=== PATIENT | male | born 1975 | race Caucasian/White ===

== ENCOUNTER 2019-08-05 20:10 | Emergency (ER) | payer SELFPAY ==
[2019-08-05 20:12] VITALS: BP 142/71; PULSE 82; RESP 18; TEMP 36.6; O2SAT 97; BMI 26.5
--- NOTE | 2019-08-05 20:23 | RAD_ITS ---
STUDY: X-RAY - LUMBAR SPINE REASON FOR EXAM: Male, 44 years old. Fall pain in left hip. TECHNIQUE: 3 view(s) of the lumbar spine were obtained. COMPARISON: None FINDINGS: Normal lumbar lordosis. There is no substantial scoliosis. There is a normal alignment of the vertebrae. There are screws traversing the right sacroiliac joint and sacrum. There are degenerative changes of the visualized thoracic spine. There is multilevel endplate spondylosis of the lumbar vertebrae. There is multi-level degenerative disc disease with mild multi-level disc space narrowing. The soft tissue structures are unremarkable. RAD/Lumbar Spine 2 or 3 Views IMPRESSION: Degenerative changes. Electronically Signed: Maria Esther Andres MD at 21:09 EDT Tel , Service support ,
--- NOTE | 2019-08-05 20:24 | RAD_ITS ---
STUDY: X-RAY - PELVIS AND LEFT HIP REASON FOR EXAM: Male, 44 years old. Fall TECHNIQUE: 3 views of the pelvis and hip. COMPARISON: None. FINDINGS: There is a non-specific bowel gas pattern. Normal visualized soft tissue structures. There are 2 screws traversing the right sacroiliac joint and the sacrum. There is a screw within the right acetabulum noted as well. There are deformities of the right superior and inferior and left superior pubic rami suggestive of old fractures. No acute fracture nor dislocation is visualized. RAD/HIP, UNI W/ Pelvis 2-3 Views IMPRESSION: No acute fracture identified. Electronically Signed: Maria Esther Andres MD at 21:21 EDT Tel , Service support ,
[2019-08-05] MEDS: Acetaminophen 500 MG Tablet 1000 MG PO (21:09)
[2019-08-05] MEDS: Naproxen 500 MG Tablet PO (21:09)
--- NOTE | 2019-08-05 21:44 | ED.VISSUMM ---
- ER Visit Summary Date of Service: 08/05/19 Chief Complaint: Fall History of Present Illness: The patient is a 44 M with no primary care physician. He reports that he was walking down the steps and slipped and fell while carrying his kids. States that his left hip popped and he has left hip and low back pain that is 6 out of 10 currently and 10 out of 10 at worst. Describes it as sharp pain. Is worsened by movement and relieved by rest. Denies any paresthesias or weakness. He denies any blow to the head or loss of consciousness. He is not on anticoagulants. Patient reports that 4 to 5 years ago he was hit by a piece of equipment while building a barn and suffered a fracture to his right hip and pelvis. He is concerned that the hardware has broken. Physical Examination: Vitals: Stable. Afebrile. Neck: No vertebral tenderness. Full ROM without difficulty. Cleared by NEXUS criteria. Back: Mild diffuse tenderness outpatient over lumbar spine. No point tenderness. General: A&O x 3. NAD. Cardiovascular exam: Regular rate and rhythm, no murmur, rub or gallop. Respiratory exam: Chest nontender. No crepitus. Clear to auscultation bilaterally. No wheezes or stridor. Abdominal exam: Soft, nontender, nondistended, normal bowel sounds. No pain in RUQ or LUQ specifically. No peritoneal signs. Extremity: Mild tenderness palpation over left greater trochanter. No pain with internal or external rotation of the hip. He is neuro vas intact distal to this. Test Results: Clinical Impression(s) from Imaging Studies Lumbar Spine X-Ray 08/05/19 20:23 IMPRESSION: Degenerative changes. Electronically Signed: Maria Esther Andres MD at 21:09 EDT Tel , Service support , Hip/Pelvis X-Ray 08/05/19 20:24 IMPRESSION: No acute fracture identified. Electronically Signed: Maria Esther Andres MD at 21:21 EDT Tel , Service support , Emergency Department Course and Treatment: Patient was treated with Tylenol and ibuprofen. He is resting comfortably. He is been able to ambulate in the emergency department. Treatment Plan: Patient will be discharged with symptomatic care. Ice the area. Use Tylenol and/or ibuprofen as needed for pain. Patient be discharged instructed to follow-up Dr. Antonio Solorio in 1 week if not improving. Return to the emergency department for any worsening symptoms. Disposition: To home in improved and stable condition. Impression: 1. Fall. 2. Lumbar strain. 3. Left hip contusion. This note was generated with [employer] dictation software. It may contain incorrect words, spelling, and punctuation that were not noted in review of the chart prior to signing ED Disposition - Plan for ED Patient: Disposition: Home or Assisted Living Instructions: ED CONTUSION Hip Referrals: Antonio Solorio MD [STAFF PHYSICIAN] - 1 Week if not improving
[2019-08-05 22:03] VITALS: BP 129/80; PULSE 76; RESP 18; O2SAT 97
== END 2019-08-05 22:04 | disposition home or self-care (01) ==
LOC: ED 20:28
PROVIDERS: Emergency Provider Emergency Medicine
DX: S39.012A Strain of muscle, fascia and tendon of lower back, initial encounter (principal); S70.02XA Contusion of left hip, initial encounter; W10.9XXA Fall (on) (from) unspecified stairs and steps, initial encounter; Y93.01 Activity, walking, marching and hiking
CPT/HCPCS: 72100; 73502; 99285

== ENCOUNTER 2022-04-27 13:09 | Emergency (ER) | payer MEDICAID, SELFPAY ==
[2022-04-27 13:10] VITALS: BP 167/117; PULSE 83; RESP 16; TEMP 36.6; O2SAT 98; BMI 28.7
[2022-04-27 14:50] VITALS: BP 180/92; PULSE 95; RESP 20; O2SAT 99
--- NOTE | 2022-04-27 15:03 | EX.ED.DYSGE1 ---
HPI History of Present Illness Chief Complaint: Edema Informant: patient Onset/Context/Timing Onset: Weeks (1) Context: Gradual Onset Timing: Continuous Quality: Swelling Location: Bilateral lower legs Worsened by: Nothing Relieved by: Nothing Narrative Narrative: Patient presents with lateral lower extremity swelling neurology that has been getting progressively worse over the last week. Patient states it is gradually getting worse. Patient states it has been constant. Patient states is mainly in the lower extremities below his knees. Patient denies any pain. Patient states nothing makes it better and nothing makes it worse. Patient states he has been trying to elevate his legs with no improvement. Patient denies any chest pain. Patient denies any shortness of breath. Patient denies any fevers or chills. PFSH PFS Home Medications NK 08/05/19 [History Last Taken Unknown] Allergy/AdvReac Type Severity Reaction Status Date / Time No Known Allergies Allergy Verified 04/27/22 13:12 Surgical History (Updated 04/27/22 @ 15:[address] Manolo Higgins DO) S/P ORIF (open reduction internal fixation) fracture Social History Smoking Status: Never smoker ROS ROS ED Constitutional Constitutional ED: Denies chills or fever(s) Eyes Eyes: Denies blurry vision or change in vision ENT ENT ED: Denies rhinorrhea or sore throat Cardiovascular Cardiovascular: Denies chest pain or palpitations Respiratory/Chest Respiratory/Chest: Denies cough or dyspnea Gastrointestinal Gastrointestinal: Denies nausea or vomiting Genitourinary Genitourinary ED: Denies dysuria or hematuria Musculoskeletal Musculoskeletal: Reports neck pain; Denies back pain Integumentary Denies abscess or rash Neurologic Neurologic: Reports headache(s); Denies weakness Allergic/Immunologic Allergic/Immunologic ED: Denies mouth swelling or urticaria EXAM Physical Exam Const Vital Signs: 04/27/22 13:10 04/27/22 14:50 04/27/22 14:50 Temperature 98 F Temperature Source Temporal Pulse Rate 83 95 Respiratory Rate 16 20 H Respiratory Effort Normal Non-Labored Blood Pressure 167/117 H 180/92 H Blood Pressure Mean 133 121 Pulse Ox 98 99 Oxygen Delivery Method Room Air Room Air Positive well nourished and well developed General Appearance ED: well developed HEENT Reports moist mucous membranes Neck supple and no JVD Resp normal respiratory effort and clear to auscultation bilaterally Cardio regular rate, regular rhythm and no murmurs GI normal to inspection, nondistended, normoactive bowel sounds and non-tender Palpation: soft Extremity normal to inspection General Extremety ED: Yes edema and tenderness General Extremity: edema bilateral lower extremity Details: mild Neuro oriented x3, CN's II-XII intact bilaterally and no sensory deficits noted Sensorium / Orientation: alert Motor Exam: strength 5/5 throughout Psych mental status grossly normal Skin no rashes or lesions noted MDM MDM MDM Narrative Medical decision making narrative: Differential diagnosis includes congestive heart failure, renal failure, bilateral DVTs, electrolyte abnormality, cardiac ischemia, and hypertensive urgency. Chest x-ray will be obtained to assess for congestive heart failure dementia and pneumonia. CBC will be obtained to assess for leukocytosis and anemia. Basic metabolic profile will be obtained to assess for renal function and electrolyte abnormality. BNP will be obtained to assess for congestive heart failure. High-sensitivity troponin will be obtained to assess for cardiac ischemia. Bilateral venous duplex ultrasounds will be obtained to assess for DVT. Lab Data Attestation: I reviewed the patient's lab results. Lab results narrative: CBC was reviewed and was within normal limits. Basic metabolic profile was reviewed and was within normal limits. High-sensitivity troponin was reviewed and was normal. B natruretic peptide was reviewed and was only slightly elevated at 102.6. Labs: Laboratory Results - last 24 hr 04/27/22 04/27/22 04/27/22 15:23 15:23 15:23 WBC 9.2 RBC 5.09 Hgb 15.5 Hct 46.3 MCV 91.0 MCH 30.5 MCHC 33.5 RDW Std Deviation 40.7 RDW Coeff of Sakina 12.2 Plt Count 216 MPV 9.1 Immature Gran % (Auto) 0.100 Neut % (Auto) 55.6 Lymph % (Auto) 18.8 L [place] % (Auto) 7.3 Eos % (Auto) 17.2 H Baso % (Auto) 1.0 Absolute Neuts (auto) 5.1 Absolute Lymphs (auto) 1.72 Nucleated RBC % 0 Sodium 138 Potassium 4.1 Chloride 107 Carbon Dioxide 24.0 Anion Gap 7 BUN 16 Creatinine 1.14 Estim Creat Clear Calc 83.60 Est GFR (MDRD) Af Amer 89 Est GFR (MDRD) Non-Af 73 BUN/Creatinine Ratio 14.0 Glucose 83 Calcium 8.9 Troponin I High Sens 9 B-Natriuretic Peptide 102.6 H Radiography Chest X-Ray - ED: 2 View, Read by ED Physician, Read by Radiologist and No Acute Disease Diagnostic Testing: Clinical Impression(s) from Imaging Studies Chest X-Ray 04/27/22 15:50 IMPRESSION: No acute cardiopulmonary pathology Electronically Signed: Frankie Barrera MD at 16:05 EDT , PA and lateral chest x-ray was obtained. There are 2 views. On my independent interpretation, lung norton are clear. There is normal cardiac silhouette. Bony thorax is normal. There is no acute process noted. Radiologist also interpreted the x-ray and agrees. Venous duplex of the lower extremities was obtained. There is no evidence of DVT. Treatment and Re-Evaluation :: Patient was advised of his findings. Patient is feeling better on reevaluation. Patient was instructed to keep his legs elevated. Patient was instructed to follow-up with his primary care physician in 5 to 7 days for further evaluation. Patient understood and was agreeable with the plan. All questions were answered. Discharge Plan Triage Chief Complaint: Edema ED Provider: Manolo Higgins Dx/Rx/DC Orders Clinical Impression: Peripheral edema, Elevated blood pressure reading Instructions: ED Peripheral Edema, Bilateral Prescriptions: No Action NK Primary Care Provider: Care Physician,No Primary Referrals: Oralia Dash MD [Med Staff - Professional Services Manager] - 5-7 Days Care Physician,No Primary [Primary Care Provider] - Disposition Disposition: Home, Self Care
--- NOTE | 2022-04-27 15:09 | VDLE_ITS ---
Reason For Study: Swelling RIGHT LEFT GSV is normal. GSV is normal. CFV is compressible, spontaneous, phasic, CFV is compressible, spontaneous, phasic, competent and demonstrates normal competent, and demonstrates normal augmentation. augmentation. FV is compressible, spontaneous, phasic, FV is compressible, spontaneous, phasic, competent and demonstrates normal competent and demonstrates normal augmentation. augmentation. POP V is compressible, spontaneous, phasic, POP V is compressible, spontaneous, phasic, competent and demonstrates normal competent and demonstrates normal augmentation. augmentation. T/P Trunk is compressible. T/P Trunk is compressible. PTV is compressible. PTV is compressible. RT PerV is compressible. LT PerV is compressible. Procedure This is a venous duplex using B-mode, color flow and spectral Doppler. Exam performed portable in ED. A preliminary report was called and/or faxed to Dr. Higgins. VL/Venous Duplex US - Matt Extrem Interpretation Summary Deep veins of the bilateral lower extremities are patent and compressible segme ntally. There is no evidence of bilateral lower extremity deep vein thrombosis. The bilateral great saphenous veins appear patent and compressible segmentally. Ordering Physician: Manolo Higgins Performed By: Nelda Nguyễn RVT
[2022-04-27 15:35] LABS: Absolute Lymphocyte Count 1.72 X10^3/uL (0.83-4.51); Absolute Neutrophil Count 5.1 X10^3/uL (2.0-7.7); Basophil# 0.09 X10^3/uL; Eosinophil# 1.58 X10^3/uL; Eosinophils% 17.2 % (0-5); Hematocrit 46.3 % (40-54); Hemoglobin 15.5 g/dL (13.0-16.5); Lymphocyte # 1.72 X10^3/ul (0.83-4.51); Lymphocyte % 18.8 % (19-41); Mean Corp Hgb Conc 33.5 g/dL (32-36); Mean Corpuscular Hgb 30.5 pg (27.0-32.0); Mean Platelet Vol. 9.1 fl (6.2-12.0); Monocyte# 0.67 X10^3/uL; Monocyte% 7.3 % (0-10); NRBC Flagged by Analyzer 0 % (0-5); Neutrophil % 55.6 % (47-70); Platelet Count 216 K/mm3 (150-450); RBC Distribution Width CV 12.2 % (11.6-14.6); RBC Distribution Width SD 40.7 fl (35.1-43.9); Red Blood Count 5.09 M/mm3 (4.6-6.2); White Blood Count 9.2 K/mm3 (4.4-11.0)
--- NOTE | 2022-04-27 15:50 | RAD_ITS ---
STUDY: X-RAY CHEST REASON FOR EXAM: Male, 46 years old. Dyspnea TECHNIQUE: PA and lateral COMPARISON: None. FINDINGS: The lungs are clear and expanded. There is no demonstrated pleural abnormality. Normal size heart. Normal mediastinum and desean. Normal visualized pulmonary arteries. Normal visualized aortic arch and descending thoracic aorta. Dorsal spine demonstrates degenerative changes.. Normal visualized ribs, clavicles, and shoulders. There is no demonstrated abnormality of the visualized soft tissue structures of the upper abdomen. RAD/Chest PA and Lateral IMPRESSION: No acute cardiopulmonary pathology Electronically Signed: Frankie Barrera MD at 16:05 EDT ,
[2022-04-27 15:54] LABS: Anion Gap 7 (5-15); BUN 16 mg/dL (7-18); Calcium,Total 8.9 mg/dL (8.5-10.1); Chloride 107 mmol/L (98-107); Creatinine, Serum 1.14 mg/dL (0.70-1.30); EST Glomerular Filtration Rate 73 mL/min (>60); Est Glom Filt Rate - Afr Amer 89 mL/min (>60); Glucose 83 mg/dL (74-106); Potassium 4.1 mmol/L (3.5-5.1); Sodium Level 138 mmol/L (136-145); Troponin-I HS 9 pg/mL (3.0-78.0)
[2022-04-27 15:56] LABS: BNP,B-Type NATRIURETIC PEPTIDE 102.6 pg/mL (0-100)
[2022-04-27 16:53] VITALS: BP 159/103; PULSE 88; RESP 18; O2SAT 99
== END 2022-04-27 16:53 | disposition home or self-care (01) ==
PROVIDERS: Emergency Provider Emergency Medicine; Visit Provider Emergency Medicine
DX: M79.89 Other specified soft tissue disorders (principal); R03.0 Elevated blood-pressure reading, without diagnosis of hypertension
CPT/HCPCS: 71046; 80048; 83880; 84484; 85025; 93970; 99285; A4216